=== PATIENT | male | born 1930 | race Caucasian/White ===

== ENCOUNTER 2020-06-24 15:17 | Inpatient (IN) ==
[2020-06-24 15:51] LABS: Basophils % 0.6 % (0.0-0.8); Eosinophils # 0.2 10*3/uL (0.0-0.87); Eosinophils % 3.5 % (0.00-10.9); Hemoglobin 10.7 GM/DL (14.0-18.0); Immature Granulocytes % 0.7 %; Immature Granulocytes Absolute 0.05 #; Lymphocytes # 1.7 10*3/uL (1.4-4.0); Lymphocytes % 24.3 % (21.2-54.2); Mean Corpuscular HGB Conc 33.4 GM/DL (32-36); Mean Corpuscular Volume 99.7 FL (87-102); Monocytes % 9.1 % (1.7-12.7); Neutrophils % 61.8 % (38.7-73.9); Platelet Count 205 T/CUMM (130-400); Red Blood Count 3.21 MC/CUMM (3.8-5.5); Red Cell Distribution Width 15.5 % (9.3-17.3); White Blood Count 6.8 T/CUMM (4-12)
[2020-06-24 16:11] LABS: Bilirubin,Total 0.7 MG/DL (0.2-1.0); Calcium 8.5 MG/DL (8.5-10.1); Osmolality,Calculated 275.1 MOS/KG (273-304); Total Protein 7.6 G/DL (6.4-8.3)
[2020-06-24 16:46] LABS: INR 1.4; PT Patient Result 14.9 SECS (9.8-11.9); Partial Thromboplastin Time 39.6 SECS (23.9-33.8)
[2020-06-24] MEDS ORDERED: cloNIDine 0.1 MG TABLET ONE (17:06)
[2020-06-24] MEDS ORDERED: cloNIDine 0.1 MG TABLET PO STA (17:07)
[2020-06-24] MEDS ORDERED: DEXTROSE 50% 25 GM/50 ML VIAL IV PRN (17:42)
[2020-06-24] MEDS ORDERED: ONDANSETRON 4 MG/2 ML VIAL IV PRN (17:42)
[2020-06-24] MEDS ORDERED: GLUCAGON 1 MG VIAL IM PRN (17:42)
[2020-06-24 17:59] LABS: Amorphous Crystals,Urine Occasional /HPF (Few); Bacteria,Urine Occasional /HPF (Few); Bilirubin,Urine Negative (Negative); Blood, Urine Small mg/dL (Negative); Glucose,Urine (UA) Negative (Negative); Hyaline Casts,Urine 58 /LPF (0-3); Ketones,Urine Negative (Negative); Mucus,Urine Occasional /LPF (Occasional); Nitrite,Urine Negative (Negative); Protein,Urine Negative; RBC,Urine 1 /HPF (0-4); Squamous Epithelial Cell,Urine Occasional /HPF (0-10); Urine Appearance Slightly Hazy (Clear); Urine Color Yellow (Yellow); Urine Specific Gravity 1.014 (1.001-1.035); Urine Urobilinogen < 2.0 EU/DL (0.2-1.0); WBC,Urine 5 /HPF (0-6)
[2020-06-24] MEDS: SODIUM CHLORIDE 0.9% 1,000 ML IV SCH (20:29)
[2020-06-24] MEDS: cefTRIAXone 1,000 MG in SYRINGE 1 EACH IV SCH (20:30)
[2020-06-24] MEDS: hydrALAZINE 25 MG TABLET PO SCH (21:14)
[2020-06-24] MEDS ORDERED: INFLUENZA VIRUS VACCINE 0.5 ML SYRINGE IM ONE (22:56)
[2020-06-24] MEDS: niCARdipine INJ 25 MG in SODIUM CHLORIDE 0.9% 240 ML IV SCH (23:26)
[2020-06-24] MEDS: DOCUSATE SODIUM 100 MG CAPSULE PO SCH (23:30)
[2020-06-24] MEDS: POLYETHYLENE GLYCOL POWDER 17 GM PACK PO SCH (23:30)
[2020-06-24] MEDS: HEPARIN 5,000 UNIT/1 ML VIAL SUBCUT SCH (23:30)
[2020-06-24] MEDS: SENNA 8.6 MG TABLET PO SCH (23:31)
[2020-06-25 04:03] LABS: Basophils % 0.6 % (0.0-0.8); Eosinophils # 0.3 10*3/uL (0.0-0.87); Eosinophils % 4.3 % (0.00-10.9); Hematocrit 27.6 VOL% (42.0-52.0); Hemoglobin 9.3 GM/DL (14.0-18.0); Immature Granulocytes % 0.4 %; Immature Granulocytes Absolute 0.03 #; Lymphocytes # 2.2 10*3/uL (1.4-4.0); Lymphocytes % 30.7 % (21.2-54.2); Mean Corpuscular HGB Conc 33.7 GM/DL (32-36); Mean Corpuscular Volume 96.2 FL (87-102); Mean Platelet Volume 9.6 FL (9.6-12.0); Monocytes % 10.1 % (1.7-12.7); Neutrophils % 53.9 % (38.7-73.9); Platelet Count 167 T/CUMM (130-400); Red Blood Count 2.87 MC/CUMM (3.8-5.5); Red Cell Distribution Width 15.5 % (9.3-17.3)
[2020-06-25] MEDS: niCARdipine INJ 25 MG in SODIUM CHLORIDE 0.9% 240 ML IV SCH ×2 (04:06→22:54)
[2020-06-25 04:47] LABS: Albumin 2.5 G/DL (3.4-5.0); Calcium 8.2 MG/DL (8.5-10.1); Osmolality,Calculated 275.9 MOS/KG (273-304); Risk Ratio 2.62; Thyroid Stimulating Hormone 2.66 uIU/ml (0.358-3.74); Total Protein 6.2 G/DL (6.4-8.3); VLDL CHOLESTEROL 13.8 MG/DL
[2020-06-25] MEDS: HEPARIN 5,000 UNIT/1 ML VIAL SUBCUT SCH (07:33)
[2020-06-25] MEDS ORDERED: PANTOPRAZOLE 40 MG TABLET PO SCH (09:00)
[2020-06-25] MEDS: DOCUSATE SODIUM 100 MG CAPSULE PO SCH ×2 (09:08→22:33)
[2020-06-25] MEDS: POLYETHYLENE GLYCOL POWDER 17 GM PACK PO SCH ×2 (09:08→22:57)
[2020-06-25] MEDS: TAMSULOSIN 0.4 MG CAPSULE PO SCH (09:08)
[2020-06-25] MEDS: hydrALAZINE 25 MG TABLET PO SCH ×3 (09:08→22:33)
[2020-06-25] MEDS ORDERED: HEPARIN 5,000 UNIT/1 ML VIAL IV ONE ×2 (15:04→23:00)
[2020-06-25] MEDS ORDERED: ALBUMIN 25% 50 GM in PREMIX 1 EACH IV ONE ×2 (15:30→23:00)
[2020-06-25 15:46] LABS: INR 1.5; PT Patient Result 15.4 SECS (9.8-11.9); Partial Thromboplastin Time 39.3 SECS (23.9-33.8)
[2020-06-25] MEDS ORDERED: ACETAMINOPHEN 500 MG TABLET PO ONE (16:28)
[2020-06-25] MEDS ORDERED: ACETAMINOPHEN 325 MG TABLET PO PRN (17:27)
[2020-06-25] MEDS ORDERED: traMADol 50 MG TABLET PO PRN (19:00)
[2020-06-25] MEDS ORDERED: HYDROmorphone 2 MG/1 ML VIAL IV PRN ×2 (19:01→19:38)
[2020-06-25] MEDS: HYDROmorphone 2 MG/1 ML VIAL IV PRN (19:54)
[2020-06-25] MEDS: cefTRIAXone 1,000 MG in SYRINGE 1 EACH IV SCH (22:28)
[2020-06-25] MEDS: SODIUM CHLORIDE 0.9% 1,000 ML IV SCH ×2 (22:32)
[2020-06-25] MEDS: SENNA 8.6 MG TABLET PO SCH (22:32)
[2020-06-25] MEDS: GABAPENTIN 300 MG CAPSULE PO SCH (22:33)
[2020-06-25] MEDS: HEPARIN DRIP 25,000 UNITS/500 ML PREMIX IV SCH (23:11)
[2020-06-26] MEDS ORDERED: ATROPINE 1 MG/10 ML SYRINGE IV STA (01:47)
[2020-06-26] MEDS ORDERED: ATROPINE 1 MG/10 ML SYRINGE IV ONE (02:05)
[2020-06-26] MEDS ORDERED: MORPHINE 4 MG/1 ML VIAL ONE (02:09)
[2020-06-26] MEDS ORDERED: DOPamine 800 MG/250 ML PREMIX IV ONE (02:13)
[2020-06-26] MEDS ORDERED: MORPHINE 4 MG/1 ML VIAL IV ONE (02:18)
[2020-06-26] MEDS: DOPamine 800 MG/250 ML PREMIX IV PRN ×5 (02:27→21:44)
[2020-06-26 02:39] LABS: Basophils % 0.3 % (0.0-0.8); Eosinophils % 0.2 % (0.00-10.9); Hematocrit 26.4 VOL% (42.0-52.0); Hemoglobin 8.9 GM/DL (14.0-18.0); Immature Granulocytes % 1.1 %; Lymphocytes # 2.3 10*3/uL (1.4-4.0); Lymphocytes % 24.1 % (21.2-54.2); Mean Corpuscular HGB Conc 33.7 GM/DL (32-36); Mean Corpuscular Volume 99.6 FL (87-102); Mean Platelet Volume 9.7 FL (9.6-12.0); Monocytes % 7.7 % (1.7-12.7); NRBC # 0.03 10*3/uL; Neutrophils % 66.6 % (38.7-73.9); Platelet Count 177 T/CUMM (130-400); Red Blood Count 2.65 MC/CUMM (3.8-5.5); Red Cell Distribution Width 16.2 % (9.3-17.3); White Blood Count 9.5 T/CUMM (4-12)
[2020-06-26 02:44] LABS: ABG Base Excess -6.8 MMOL/L (-2.5-2.5); ABG HCO3 17.4 MMOL/L (20-26); ABG Oxygen Saturation 95.5 % (95-100); ABG PCO2 30.3 MM HG (35-48); ABG PH 7.378 (7.35-7.45); ABG PO2 85.8 MM HG (80-95); ABG TCO2 18.4 MMOL/L (23-27); Allen Test Positive; Pt O2 Delivery Device Venturi Mask
[2020-06-26] MEDS: SODIUM CHLORIDE 0.9% 1,000 ML IV SCH ×3 (02:51→10:57)
[2020-06-26] MEDS: HEPARIN 5,000 UNIT/1 ML VIAL SUBCUT SCH (02:52)
[2020-06-26 03:22] LABS: Albumin 2.6 G/DL (3.4-5.0); Bilirubin,Total 0.5 MG/DL (0.2-1.0); Calcium 7.9 MG/DL (8.5-10.1); Osmolality,Calculated 276.2 MOS/KG (273-304); Total Protein 6.6 G/DL (6.4-8.3)
[2020-06-26] MEDS ORDERED: INSULIN REGULAR 100 UNIT/ML IV ONE (03:27)
[2020-06-26] MEDS ORDERED: DEXTROSE 50% 25 GM/50 ML VIAL IV ONE (03:27)
[2020-06-26] MEDS ORDERED: SODIUM BICARBONATE 50 MEQ/50 ML VIAL IV ONE (03:28)
[2020-06-26] MEDS ORDERED: CALCIUM CHLORIDE 1,000 MG/10 ML SYRINGE IV ONE ×2 (03:28→03:35)
[2020-06-26] MEDS ORDERED: INSULIN REGULAR 100 UNIT/ML ONE (03:35)
[2020-06-26] MEDS: HYDROmorphone 2 MG/1 ML VIAL IV PRN (06:00)
[2020-06-26 07:33] LABS: Calcium 8.7 MG/DL (8.5-10.1); Osmolality,Calculated 278.1 MOS/KG (273-304)
[2020-06-26] MEDS ORDERED: FUROSEMIDE 40 MG/4 ML VIAL IV ONE (08:43)
[2020-06-26] MEDS: POLYETHYLENE GLYCOL POWDER 17 GM PACK PO SCH ×2 (08:44→20:09)
[2020-06-26] MEDS: hydrALAZINE 25 MG TABLET PO SCH (08:55)
[2020-06-26] MEDS: DOCUSATE SODIUM 100 MG CAPSULE PO SCH ×2 (08:56→20:09)
[2020-06-26] MEDS: TAMSULOSIN 0.4 MG CAPSULE PO SCH (08:56)
[2020-06-26] MEDS ORDERED: HEPARIN/NACL 0.9% 2 UNITS/ML 500 ML IV ONE (10:06)
[2020-06-26] MEDS ORDERED: LIDOCAINE 1% 20 ML VIAL ONE (10:06)
[2020-06-26] MEDS ORDERED: MIDAZOLAM 2 MG/2 ML VIAL ONE (10:35)
[2020-06-26 10:41] LABS: INR 1.5; PT Patient Result 15.6 SECS (9.8-11.9)
[2020-06-26 13:15] LABS: Bacteria,Urine Many /HPF (Few); Bilirubin,Urine Negative (Negative); Blood, Urine Large mg/dL (Negative); Glucose,Urine (UA) Negative (Negative); Hyaline Casts,Urine 12 /LPF (0-3); Ketones,Urine Negative (Negative); Nitrite,Urine Negative (Negative); Protein,Urine 100 MG/DL; RBC,Urine 490 /HPF (0-4); Squamous Epithelial Cell,Urine Few /HPF (0-10); Urine Appearance CLOUDY (Clear); Urine Color Yellow (Yellow); Urine Specific Gravity 1.008 (1.001-1.035); Urine Urobilinogen < 2.0 EU/DL (0.2-1.0); WBC,Urine 60 /HPF (0-6)
[2020-06-26] MEDS: HYDROCORTISONE 100 MG VIAL IV SCH ×2 (16:38→22:25)
[2020-06-26] MEDS: PANTOPRAZOLE 40 MG VIAL IV SCH (16:38)
[2020-06-26] MEDS ORDERED: LEVOFLOXACIN INJ 750 MG in PREMIX 1 EACH IV ONE (17:00)
[2020-06-26 17:24] LABS: ABG Base Excess -6.4 MMOL/L (-2.5-2.5); ABG HCO3 18.5 MMOL/L (20-26); ABG Oxygen Saturation 46.3 % (95-100); ABG PCO2 47.9 MM HG (35-48); ABG PH 7.246 (7.35-7.45); ABG TCO2 19.8 MMOL/L (23-27)
[2020-06-26 17:26] LABS: ABG PO2 32.9 MM HG (80-95)
[2020-06-26] MEDS: HEPARIN DRIP 25,000 UNITS/500 ML PREMIX IV SCH (17:57)
[2020-06-26] MEDS: cefTRIAXone 1,000 MG in SYRINGE 1 EACH IV SCH (18:03)
[2020-06-26] MEDS: SIMVASTATIN 20 MG TABLET PO SCH (20:09)
[2020-06-26] MEDS: SENNA 8.6 MG TABLET PO SCH (20:09)
[2020-06-26] MEDS: GABAPENTIN 300 MG CAPSULE PO SCH (20:09)
[2020-06-26] MEDS: NOREPINEPHRINE 8 MG in SODIUM CHLORIDE 0.9% 242 ML IV PRN (22:12)
[2020-06-27] MEDS: HEPARIN DRIP 25,000 UNITS/500 ML PREMIX IV SCH ×2 (02:13→16:13)
[2020-06-27] MEDS: HYDROCORTISONE 100 MG VIAL IV SCH ×3 (05:09→17:25)
[2020-06-27 06:06] LABS: Basophils % 0.1 % (0.0-0.8); Hematocrit 25.7 VOL% (42.0-52.0); Hemoglobin 8.4 GM/DL (14.0-18.0); Immature Granulocytes % 0.8 %; Immature Granulocytes Absolute 0.14 #; Lymphocytes # 1.9 10*3/uL (1.4-4.0); Lymphocytes % 11.2 % (21.2-54.2); Mean Corpuscular HGB Conc 32.7 GM/DL (32-36); Mean Corpuscular Volume 102.4 FL (87-102); Mean Platelet Volume 9.6 FL (9.6-12.0); Monocytes % 5.6 % (1.7-12.7); NRBC # 0.03 10*3/uL; Neutrophils % 82.3 % (38.7-73.9); Platelet Count 212 T/CUMM (130-400); Red Blood Count 2.51 MC/CUMM (3.8-5.5); Red Cell Distribution Width 16.4 % (9.3-17.3); White Blood Count 17.2 T/CUMM (4-12)
[2020-06-27] MEDS: NOREPINEPHRINE 8 MG in SODIUM CHLORIDE 0.9% 242 ML IV PRN (06:48)
[2020-06-27 07:16] LABS: Albumin 2.5 G/DL (3.4-5.0); Bilirubin,Total 0.7 MG/DL (0.2-1.0); Calcium 8.2 MG/DL (8.5-10.1); Osmolality,Calculated 271.6 MOS/KG (273-304); Total Protein 6.5 G/DL (6.4-8.3)
[2020-06-27] MEDS ORDERED: SODIUM POLYSTYRENE SULFATE 15 GM/60 ML BOTTLE PO ONE (07:58)
[2020-06-27] MEDS: DOCUSATE SODIUM 100 MG CAPSULE PO SCH ×2 (08:59→20:29)
[2020-06-27] MEDS: TAMSULOSIN 0.4 MG CAPSULE PO SCH (08:59)
[2020-06-27] MEDS: POLYETHYLENE GLYCOL POWDER 17 GM PACK PO SCH ×2 (09:00→20:29)
[2020-06-27] MEDS: PANTOPRAZOLE 40 MG VIAL IV SCH (09:03)
[2020-06-27] MEDS: SODIUM BICARBONATE 650 MG TABLET PO SCH ×2 (09:11→20:29)
[2020-06-27 12:41] LABS: Calcium 7.9 MG/DL (8.5-10.1); Osmolality,Calculated 275.6 MOS/KG (273-304)
[2020-06-27] MEDS: NOREPINEPHRINE 16 MG in SODIUM CHLORIDE 0.9% 234 ML IV PRN (13:00)
[2020-06-27] MEDS ORDERED: MIDAZOLAM 100 MG in SODIUM CHLORIDE 0.9% 80 ML IV PRN ×2 (15:08→15:09)
[2020-06-27] MEDS: SODIUM POLYSTYRENE SULFATE 15 GM/60 ML BOTTLE PO PRN ×2 (17:25→22:31)
[2020-06-27] MEDS: cefTRIAXone 1,000 MG in SYRINGE 1 EACH IV SCH (17:26)
[2020-06-27] MEDS: SIMVASTATIN 20 MG TABLET PO SCH (20:29)
[2020-06-27] MEDS: SENNA 8.6 MG TABLET PO SCH (20:29)
[2020-06-27] MEDS: GABAPENTIN 300 MG CAPSULE PO SCH (20:29)
[2020-06-28] MEDS: HYDROCORTISONE 100 MG VIAL IV SCH ×3 (01:49→17:48)
[2020-06-28 04:13] LABS: Basophils % 0.1 % (0.0-0.8); Hematocrit 25.1 VOL% (42.0-52.0); Hemoglobin 8.3 GM/DL (14.0-18.0); Immature Granulocytes % 0.9 %; Immature Granulocytes Absolute 0.11 #; Lymphocytes # 1.4 10*3/uL (1.4-4.0); Lymphocytes % 11.4 % (21.2-54.2); Mean Corpuscular HGB Conc 33.1 GM/DL (32-36); Mean Corpuscular Volume 100.4 FL (87-102); Mean Platelet Volume 9.4 FL (9.6-12.0); Monocytes % 7.5 % (1.7-12.7); NRBC # 0.03 10*3/uL; Neutrophils % 80.1 % (38.7-73.9); Platelet Count 191 T/CUMM (130-400); Red Cell Distribution Width 16.3 % (9.3-17.3); White Blood Count 12.6 T/CUMM (4-12)
[2020-06-28] MEDS: NOREPINEPHRINE 16 MG in SODIUM CHLORIDE 0.9% 234 ML IV PRN (04:32)
[2020-06-28 04:38] LABS: Albumin 2.5 G/DL (3.4-5.0); Calcium 7.9 MG/DL (8.5-10.1); Osmolality,Calculated 286.9 MOS/KG (273-304); Total Protein 6.4 G/DL (6.4-8.3)
[2020-06-28] MEDS ORDERED: diphenhydrAMINE CAP 25 MG CAPSULE PO ONE (07:26)
[2020-06-28] MEDS ORDERED: DIAZEPAM 5 MG TABLET PO ONE (07:26)
[2020-06-28] MEDS ORDERED: SODIUM CHLORIDE 0.9% 1,000 ML IV SCH (07:30)
[2020-06-28] MEDS ORDERED: VANCOMYCIN 500 MG VIAL IRRIG ONE (07:48)
[2020-06-28] MEDS ORDERED: VANCOMYCIN INJ 1,000 MG in SODIUM CHLORIDE 0.9% 250 ML IV ONE (07:48)
[2020-06-28] MEDS ORDERED: HEPARIN 5,000 UNIT/1 ML VIAL ONE (07:55)
[2020-06-28] MEDS ORDERED: LIDOCAINE 1%/EPI INJ 20 ML VIAL ONE (07:55)
[2020-06-28] MEDS ORDERED: BUPIVACAINE MPF 0.25% 30 ML VIAL ONE (07:55)
[2020-06-28] MEDS: PANTOPRAZOLE 40 MG VIAL IV SCH (08:27)
[2020-06-28] MEDS ORDERED: DEXMEDETOMIDINE 200 MCG/2 ML VIAL ONE ×2 (08:50→12:51)
[2020-06-28] MEDS ORDERED: ceFAZolin 1,000 MG VIAL ONE (09:07)
[2020-06-28] MEDS ORDERED: MIDAZOLAM 2 MG/2 ML VIAL ONE ×2 (09:53→14:51)
[2020-06-28] MEDS: DOCUSATE SODIUM 100 MG CAPSULE PO SCH ×2 (10:36→20:56)
[2020-06-28] MEDS: POLYETHYLENE GLYCOL POWDER 17 GM PACK PO SCH ×2 (10:37→20:56)
[2020-06-28] MEDS: TAMSULOSIN 0.4 MG CAPSULE PO SCH (10:37)
[2020-06-28] MEDS: SODIUM BICARBONATE 650 MG TABLET PO SCH ×2 (10:37→20:56)
[2020-06-28] MEDS ORDERED: LIDOCAINE 1% 20 ML VIAL ONE (12:19)
[2020-06-28] MEDS ORDERED: HEPARIN/NACL 0.9% 2 UNITS/ML 500 ML IV ONE (12:45)
[2020-06-28] MEDS ORDERED: VANCOMYCIN 500 MG VIAL ONE ×2 (12:48→13:09)
[2020-06-28] MEDS: SODIUM CHLORIDE 0.9% 1,000 ML IV SCH (17:40)
[2020-06-28] MEDS: LEVOFLOXACIN INJ 500 MG in PREMIX 1 EACH IV SCH (17:47)
[2020-06-28] MEDS: cefTRIAXone 1,000 MG in SYRINGE 1 EACH IV SCH (17:48)
[2020-06-28] MEDS: HEPARIN DRIP 25,000 UNITS/500 ML PREMIX IV SCH (19:28)
[2020-06-28 20:56] LABS: Hepatitis B Core IgM Quant 0.06 Index; Hepatitis B Surface Ag Quant < 0.10 Index; Hepatitis B Surface Ag Result Negative (Negative); Hepatitis C Virus Ab Result Negative (Negative)
[2020-06-28] MEDS: SIMVASTATIN 20 MG TABLET PO SCH (20:56)
[2020-06-28] MEDS: SENNA 8.6 MG TABLET PO SCH (20:56)
[2020-06-28] MEDS: GABAPENTIN 300 MG CAPSULE PO SCH (20:56)
[2020-06-29] MEDS: HYDROCORTISONE 100 MG VIAL IV SCH ×3 (03:51→17:12)
[2020-06-29 04:30] LABS: Hematocrit 24.1 VOL% (42.0-52.0); Hemoglobin 8.1 GM/DL (14.0-18.0); Immature Granulocytes % 0.5 %; Immature Granulocytes Absolute 0.03 #; Lymphocytes % 17.5 % (21.2-54.2); Mean Corpuscular HGB Conc 33.6 GM/DL (32-36); Mean Corpuscular Volume 99.2 FL (87-102); Mean Platelet Volume 9.5 FL (9.6-12.0); Monocytes % 7.2 % (1.7-12.7); Neutrophils % 74.8 % (38.7-73.9); Platelet Count 116 T/CUMM (130-400); Red Blood Count 2.43 MC/CUMM (3.8-5.5); Red Cell Distribution Width 16.3 % (9.3-17.3); White Blood Count 5.9 T/CUMM (4-12)
[2020-06-29 05:02] LABS: Albumin 2.4 G/DL (3.4-5.0); Bilirubin,Total 0.4 MG/DL (0.2-1.0); Calcium 7.6 MG/DL (8.5-10.1); Total Protein 5.9 G/DL (6.4-8.3)
[2020-06-29] MEDS: POLYETHYLENE GLYCOL POWDER 17 GM PACK PO SCH ×2 (08:27→20:31)
[2020-06-29] MEDS: TAMSULOSIN 0.4 MG CAPSULE PO SCH (08:28)
[2020-06-29] MEDS: SODIUM BICARBONATE 650 MG TABLET PO SCH ×2 (08:28→20:28)
[2020-06-29] MEDS: DOCUSATE SODIUM 100 MG CAPSULE PO SCH ×2 (08:28→20:31)
[2020-06-29] MEDS: PANTOPRAZOLE 40 MG VIAL IV SCH (08:28)
[2020-06-29] MEDS ORDERED: WARFARIN 10 MG TABLET PO ONE (11:19)
[2020-06-29 12:56] LABS: INR 1.6
[2020-06-29] MEDS: SODIUM CHLORIDE 0.9% 1,000 ML IV SCH (15:30)
[2020-06-29] MEDS: hydrALAZINE 20 MG/1 ML VIAL IV PRN ×2 (16:10→22:50)
[2020-06-29] MEDS: cefTRIAXone 1,000 MG in SYRINGE 1 EACH IV SCH (17:12)
[2020-06-29] MEDS: HEPARIN DRIP 25,000 UNITS/500 ML PREMIX IV SCH (19:14)
[2020-06-29] MEDS: GABAPENTIN 300 MG CAPSULE PO SCH (20:28)
[2020-06-29] MEDS: hydrALAZINE 25 MG TABLET PO SCH (20:29)
[2020-06-29] MEDS: SIMVASTATIN 20 MG TABLET PO SCH (20:29)
[2020-06-29] MEDS: SENNA 8.6 MG TABLET PO SCH (20:31)
[2020-06-30] MEDS: HYDROCORTISONE 100 MG VIAL IV SCH ×3 (02:26→16:28)
[2020-06-30] MEDS: niCARdipine INJ 25 MG in SODIUM CHLORIDE 0.9% 240 ML IV SCH ×2 (02:46→12:49)
[2020-06-30 05:04] LABS: Hematocrit 24.4 VOL% (42.0-52.0); Hemoglobin 8.2 GM/DL (14.0-18.0); Immature Granulocytes % 0.7 %; Immature Granulocytes Absolute 0.04 #; Mean Corpuscular HGB Conc 33.6 GM/DL (32-36); Mean Corpuscular Volume 97.2 FL (87-102); Mean Platelet Volume 9.4 FL (9.6-12.0); Monocytes % 9.3 % (1.7-12.7); NRBC # 0.02 10*3/uL; Platelet Count 107 T/CUMM (130-400); Red Blood Count 2.51 MC/CUMM (3.8-5.5); Red Cell Distribution Width 16.2 % (9.3-17.3); White Blood Count 5.8 T/CUMM (4-12)
[2020-06-30 05:13] LABS: INR 1.8; PT Patient Result 18.3 SECS (9.8-11.9)
[2020-06-30 05:31] LABS: Albumin 2.3 G/DL (3.4-5.0); Bilirubin,Total 1.1 MG/DL (0.2-1.0); Calcium 8.2 MG/DL (8.5-10.1); Total Protein 5.9 G/DL (6.4-8.3)
[2020-06-30] MEDS ORDERED: POTASSIUM CHLORIDE 20 MEQ TABLET PO ONE (07:51)
[2020-06-30] MEDS: hydrALAZINE 25 MG TABLET PO SCH ×3 (08:38→20:55)
[2020-06-30] MEDS: TAMSULOSIN 0.4 MG CAPSULE PO SCH (08:38)
[2020-06-30] MEDS: SODIUM BICARBONATE 650 MG TABLET PO SCH ×2 (08:39→20:55)
[2020-06-30] MEDS: PANTOPRAZOLE 40 MG VIAL IV SCH (08:39)
[2020-06-30] MEDS: HEPARIN DRIP 25,000 UNITS/500 ML PREMIX IV SCH ×2 (08:45→14:59)
[2020-06-30] MEDS: DOCUSATE SODIUM 100 MG CAPSULE PO SCH ×3 (10:14→21:05)
[2020-06-30] MEDS: POLYETHYLENE GLYCOL POWDER 17 GM PACK PO SCH ×3 (10:15→21:05)
[2020-06-30] MEDS: SODIUM CHLORIDE 0.9% 1,000 ML IV SCH (12:44)
[2020-06-30] MEDS: LEVOFLOXACIN INJ 500 MG in PREMIX 1 EACH IV SCH (16:34)
[2020-06-30] MEDS: WARFARIN 5 MG TABLET PO SCH (17:44)
[2020-06-30] MEDS: cefTRIAXone 1,000 MG in SYRINGE 1 EACH IV SCH (17:48)
[2020-06-30] MEDS: SIMVASTATIN 20 MG TABLET PO SCH (20:55)
[2020-06-30] MEDS: SENNA 8.6 MG TABLET PO SCH (20:55)
[2020-06-30] MEDS: GABAPENTIN 300 MG CAPSULE PO SCH (20:55)
[2020-07-01] MEDS: HYDROCORTISONE 100 MG VIAL IV SCH ×3 (00:49→17:23)
[2020-07-01 04:49] LABS: Hematocrit 22.8 VOL% (42.0-52.0); Hemoglobin 7.6 GM/DL (14.0-18.0); Immature Granulocytes % 1.2 %; Immature Granulocytes Absolute 0.08 #; Lymphocytes % 15.3 % (21.2-54.2); Mean Corpuscular HGB Conc 33.3 GM/DL (32-36); Mean Corpuscular Volume 99.6 FL (87-102); Mean Platelet Volume 9.6 FL (9.6-12.0); Monocytes % 6.7 % (1.7-12.7); NRBC # 0.03 10*3/uL; Neutrophils % 76.8 % (38.7-73.9); Platelet Count 100 T/CUMM (130-400); Red Blood Count 2.29 MC/CUMM (3.8-5.5); Red Cell Distribution Width 16.9 % (9.3-17.3); White Blood Count 6.5 T/CUMM (4-12)
[2020-07-01 04:59] LABS: INR 2.7; PT Patient Result 27.4 SECS (9.8-11.9)
[2020-07-01 05:12] LABS: Albumin 2.3 G/DL (3.4-5.0); Bilirubin,Total 0.9 MG/DL (0.2-1.0); Calcium 8.2 MG/DL (8.5-10.1); Osmolality,Calculated 278.1 MOS/KG (273-304); Total Protein 5.7 G/DL (6.4-8.3)
[2020-07-01] MEDS: TAMSULOSIN 0.4 MG CAPSULE PO SCH (09:54)
[2020-07-01] MEDS: SODIUM BICARBONATE 650 MG TABLET PO SCH ×2 (09:54→21:11)
[2020-07-01] MEDS: hydrALAZINE 25 MG TABLET PO SCH ×3 (09:54→21:12)
[2020-07-01] MEDS: POLYETHYLENE GLYCOL POWDER 17 GM PACK PO SCH ×2 (09:55→21:08)
[2020-07-01] MEDS: PANTOPRAZOLE 40 MG VIAL IV SCH (09:55)
[2020-07-01] MEDS: DOCUSATE SODIUM 100 MG CAPSULE PO SCH ×2 (09:55→21:11)
[2020-07-01] MEDS: cefTRIAXone 1,000 MG in SYRINGE 1 EACH IV SCH (17:23)
[2020-07-01] MEDS: WARFARIN 5 MG TABLET PO SCH (17:24)
[2020-07-01] MEDS ORDERED: FUROSEMIDE 20 MG/2 ML VIAL IV ONE (17:40)
[2020-07-01] MEDS ORDERED: FUROSEMIDE 40 MG/4 ML VIAL ONE (17:44)
[2020-07-01] MEDS: SENNA 8.6 MG TABLET PO SCH (21:11)
[2020-07-01] MEDS: GABAPENTIN 300 MG CAPSULE PO SCH (21:11)
[2020-07-01] MEDS: SIMVASTATIN 20 MG TABLET PO SCH (21:12)
[2020-07-02] MEDS: HYDROmorphone 2 MG/1 ML VIAL IV PRN ×3 (00:40→16:58)
[2020-07-02] MEDS: HYDROCORTISONE 100 MG VIAL IV SCH ×3 (02:07→16:41)
[2020-07-02 06:10] LABS: Basophils % 0.1 % (0.0-0.8); Hematocrit 21.8 VOL% (42.0-52.0); Hemoglobin 7.3 GM/DL (14.0-18.0); Immature Granulocytes % 1.8 %; Immature Granulocytes Absolute 0.12 #; Lymphocytes # 1.3 10*3/uL (1.4-4.0); Lymphocytes % 19.3 % (21.2-54.2); Mean Corpuscular HGB Conc 33.5 GM/DL (32-36); Mean Corpuscular Volume 99.5 FL (87-102); Mean Platelet Volume 10.1 FL (9.6-12.0); Monocytes % 7.2 % (1.7-12.7); NRBC # 0.04 10*3/uL; Neutrophils % 71.6 % (38.7-73.9); Platelet Count 100 T/CUMM (130-400); Red Blood Count 2.19 MC/CUMM (3.8-5.5); Red Cell Distribution Width 17.2 % (9.3-17.3); White Blood Count 6.8 T/CUMM (4-12)
[2020-07-02 06:31] LABS: PT Patient Result 49.2 SECS (9.8-11.9)
[2020-07-02 06:39] LABS: Albumin 2.2 G/DL (3.4-5.0); Bilirubin,Total 0.9 MG/DL (0.2-1.0); Calcium 8.1 MG/DL (8.5-10.1); Osmolality,Calculated 275.5 MOS/KG (273-304); Total Protein 5.4 G/DL (6.4-8.3)
[2020-07-02 07:14] LABS: Folate 8.4 NG/ML (5.4-24.0); Vitamin B12 1334 PG/ML (211-911)
[2020-07-02 07:25] LABS: Sedimentation Rate-Westergren 32 MM/HR (0-20)
[2020-07-02 09:12] LABS: Hemoglobin A1 (Alkaline) 97.6 % (96.5-98.5); Hemoglobin A2 (Alkaline) 2.4 % (1.5-3.5)
[2020-07-02] MEDS: DOCUSATE SODIUM 100 MG CAPSULE PO SCH ×2 (09:18→21:26)
[2020-07-02] MEDS: hydrALAZINE 25 MG TABLET PO SCH ×3 (09:18→21:26)
[2020-07-02] MEDS: SODIUM BICARBONATE 650 MG TABLET PO SCH ×2 (09:18→21:25)
[2020-07-02] MEDS: PANTOPRAZOLE 40 MG VIAL IV SCH (09:18)
[2020-07-02] MEDS: TAMSULOSIN 0.4 MG CAPSULE PO SCH (09:18)
[2020-07-02] MEDS: POLYETHYLENE GLYCOL POWDER 17 GM PACK PO SCH ×2 (09:18→21:26)
[2020-07-02] MEDS ORDERED: ASPIRIN CHEW 81 MG TABLET PO ONE (10:47)
[2020-07-02] MEDS: ASPIRIN EC 81 MG TABLET PO SCH (10:56)
[2020-07-02] MEDS ORDERED: HEPARIN 10,000 UNIT/10 ML VIAL ONE (13:45)
[2020-07-02] MEDS: GABAPENTIN 300 MG CAPSULE PO SCH ×2 (14:17→21:25)
[2020-07-02] MEDS: SENNA 8.6 MG TABLET PO SCH (21:25)
[2020-07-02] MEDS: SIMVASTATIN 20 MG TABLET PO SCH (21:26)
[2020-07-03] MEDS: HYDROCORTISONE 100 MG VIAL IV SCH ×3 (01:03→16:06)
[2020-07-03] MEDS: HYDROmorphone 2 MG/1 ML VIAL IV PRN ×2 (01:05→04:52)
[2020-07-03 06:50] LABS: PT Patient Result 54.1 SECS (9.8-11.9)
[2020-07-03 06:51] LABS: INR 5.5
[2020-07-03 08:27] LABS: Basophils % 0.1 % (0.0-0.8); Hematocrit 23.1 VOL% (42.0-52.0); Hemoglobin 7.7 GM/DL (14.0-18.0); Immature Granulocytes Absolute 0.16 #; Lymphocytes # 1.2 10*3/uL (1.4-4.0); Lymphocytes % 14.4 % (21.2-54.2); Mean Corpuscular HGB Conc 33.3 GM/DL (32-36); Mean Corpuscular Volume 101.3 FL (87-102); Monocytes % 6.2 % (1.7-12.7); NRBC # 0.06 10*3/uL; Neutrophils % 77.3 % (38.7-73.9); Platelet Count 101 T/CUMM (130-400); Red Blood Count 2.28 MC/CUMM (3.8-5.5); Red Cell Distribution Width 17.2 % (9.3-17.3); White Blood Count 8.2 T/CUMM (4-12)
[2020-07-03] MEDS: hydrALAZINE 25 MG TABLET PO SCH ×3 (08:31→22:15)
[2020-07-03] MEDS: SODIUM BICARBONATE 650 MG TABLET PO SCH ×2 (08:31→22:13)
[2020-07-03] MEDS: DOCUSATE SODIUM 100 MG CAPSULE PO SCH ×2 (08:31→22:12)
[2020-07-03] MEDS: ASPIRIN EC 81 MG TABLET PO SCH (08:31)
[2020-07-03] MEDS: TAMSULOSIN 0.4 MG CAPSULE PO SCH (08:31)
[2020-07-03] MEDS: GABAPENTIN 300 MG CAPSULE PO SCH ×3 (08:32→22:13)
[2020-07-03] MEDS: POLYETHYLENE GLYCOL POWDER 17 GM PACK PO SCH ×2 (08:32→22:14)
[2020-07-03] MEDS: PANTOPRAZOLE 40 MG VIAL IV SCH (08:33)
[2020-07-03 08:36] LABS: Calcium 8.3 MG/DL (8.5-10.1); Osmolality,Calculated 267.8 MOS/KG (273-304)
[2020-07-03 10:09] LABS: Macrocytosis 1+
[2020-07-03 10:10] LABS: Platelet Estimate Adequate; Polychromasia Slight; Schistocytes Few
[2020-07-03] MEDS: cefTRIAXone 1,000 MG in SYRINGE 1 EACH IV SCH (10:15)
[2020-07-03] MEDS: SENNA 8.6 MG TABLET PO SCH (22:10)
[2020-07-03] MEDS: SIMVASTATIN 20 MG TABLET PO SCH (22:12)
[2020-07-04] MEDS: HYDROCORTISONE 100 MG VIAL IV SCH ×3 (00:54→16:07)
[2020-07-04 06:14] LABS: Hematocrit 21.6 VOL% (42.0-52.0); Hemoglobin 7.2 GM/DL (14.0-18.0); Immature Granulocytes % 2.4 %; Immature Granulocytes Absolute 0.18 #; Lymphocytes % 13.2 % (21.2-54.2); Mean Corpuscular HGB Conc 33.3 GM/DL (32-36); Mean Corpuscular Volume 100.9 FL (87-102); Mean Platelet Volume 10.4 FL (9.6-12.0); NRBC # 0.04 10*3/uL; Neutrophils % 76.4 % (38.7-73.9); Platelet Count 104 T/CUMM (130-400); Red Blood Count 2.14 MC/CUMM (3.8-5.5); White Blood Count 7.5 T/CUMM (4-12)
[2020-07-04 06:27] LABS: Calcium 8.2 MG/DL (8.5-10.1); Osmolality,Calculated 277.5 MOS/KG (273-304)
[2020-07-04 06:44] LABS: INR 3.9
[2020-07-04 06:48] LABS: PT Patient Result 39.2 SECS (9.8-11.9)
[2020-07-04] MEDS ORDERED: SODIUM CHLORIDE 0.9% 1,000 ML IV PRN (07:47)
[2020-07-04] MEDS: PANTOPRAZOLE 40 MG VIAL IV SCH (09:15)
[2020-07-04] MEDS: POLYETHYLENE GLYCOL POWDER 17 GM PACK PO SCH ×2 (09:15→20:59)
[2020-07-04] MEDS: GABAPENTIN 300 MG CAPSULE PO SCH ×3 (09:17→21:01)
[2020-07-04] MEDS: cefTRIAXone 1,000 MG in SYRINGE 1 EACH IV SCH (09:17)
[2020-07-04] MEDS: SODIUM BICARBONATE 650 MG TABLET PO SCH ×2 (09:18→21:01)
[2020-07-04] MEDS: TAMSULOSIN 0.4 MG CAPSULE PO SCH (09:18)
[2020-07-04] MEDS: DOCUSATE SODIUM 100 MG CAPSULE PO SCH ×2 (09:18→21:02)
[2020-07-04] MEDS: ASPIRIN EC 81 MG TABLET PO SCH (09:19)
[2020-07-04] MEDS: hydrALAZINE 25 MG TABLET PO SCH ×3 (09:21→21:06)
[2020-07-04 13:17] LABS: ABG Base Excess -1.8 MMOL/L (-2.5-2.5); ABG HCO3 22.5 MMOL/L (20-26); ABG Oxygen Saturation 97.6 % (95-100); ABG PCO2 36.1 MM HG (35-48); ABG PH 7.412 (7.35-7.45); ABG PO2 105.5 MM HG (80-95); ABG TCO2 23.6 MMOL/L (23-27)
[2020-07-04] MEDS: SENNA 8.6 MG TABLET PO SCH (21:01)
[2020-07-04] MEDS: SIMVASTATIN 20 MG TABLET PO SCH (21:02)
[2020-07-05] MEDS: HYDROCORTISONE 100 MG VIAL IV SCH ×3 (00:38→17:46)
[2020-07-05 06:23] LABS: Basophils % 0.1 % (0.0-0.8); Hematocrit 24.5 VOL% (42.0-52.0); Hemoglobin 8.2 GM/DL (14.0-18.0); Immature Granulocytes % 2.7 %; Immature Granulocytes Absolute 0.19 #; Lymphocytes # 0.8 10*3/uL (1.4-4.0); Lymphocytes % 11.4 % (21.2-54.2); Mean Corpuscular HGB Conc 33.5 GM/DL (32-36); Mean Corpuscular Volume 101.2 FL (87-102); Mean Platelet Volume 10.2 FL (9.6-12.0); Monocytes % 7.3 % (1.7-12.7); Neutrophils % 78.5 % (38.7-73.9); Platelet Count 123 T/CUMM (130-400); Red Blood Count 2.42 MC/CUMM (3.8-5.5); Red Cell Distribution Width 17.3 % (9.3-17.3); White Blood Count 7.1 T/CUMM (4-12)
[2020-07-05 06:33] LABS: INR 2.7; PT Patient Result 27.7 SECS (9.8-11.9)
[2020-07-05 06:34] LABS: Calcium 8.3 MG/DL (8.5-10.1); Osmolality,Calculated 274.2 MOS/KG (273-304)
[2020-07-05] MEDS ORDERED: POTASSIUM CHLORIDE 20 MEQ TABLET PO ONE (08:29)
[2020-07-05] MEDS: GABAPENTIN 300 MG CAPSULE PO SCH ×3 (13:14→21:06)
[2020-07-05] MEDS: TAMSULOSIN 0.4 MG CAPSULE PO SCH (13:14)
[2020-07-05] MEDS: SODIUM BICARBONATE 650 MG TABLET PO SCH ×2 (13:14→21:05)
[2020-07-05] MEDS: hydrALAZINE 25 MG TABLET PO SCH ×3 (13:14→21:06)
[2020-07-05] MEDS: ASPIRIN EC 81 MG TABLET PO SCH (13:15)
[2020-07-05] MEDS: PANTOPRAZOLE 40 MG VIAL IV SCH (13:15)
[2020-07-05] MEDS: POLYETHYLENE GLYCOL POWDER 17 GM PACK PO SCH ×2 (13:15→21:07)
[2020-07-05] MEDS: DOCUSATE SODIUM 100 MG CAPSULE PO SCH ×2 (13:15→21:05)
[2020-07-05] MEDS: cefTRIAXone 1,000 MG in SYRINGE 1 EACH IV SCH (13:19)
[2020-07-05] MEDS: METOPROLOL TARTRATE 25 MG TABLET PO SCH ×2 (13:28→21:06)
[2020-07-05] MEDS: WARFARIN 5 MG TABLET PO SCH (17:46)
[2020-07-05] MEDS: SIMVASTATIN 20 MG TABLET PO SCH (21:05)
[2020-07-05] MEDS: SENNA 8.6 MG TABLET PO SCH (21:05)
[2020-07-06] MEDS: HYDROCORTISONE 100 MG VIAL IV SCH ×3 (02:03→18:04)
[2020-07-06 07:33] LABS: Basophils % 0.1 % (0.0-0.8); Hematocrit 24.3 VOL% (42.0-52.0); Hemoglobin 7.9 GM/DL (14.0-18.0); Immature Granulocytes % 2.3 %; Immature Granulocytes Absolute 0.21 #; Lymphocytes % 11.3 % (21.2-54.2); Mean Corpuscular HGB Conc 32.5 GM/DL (32-36); Mean Corpuscular Volume 102.1 FL (87-102); Mean Platelet Volume 10.1 FL (9.6-12.0); Monocytes % 9.3 % (1.7-12.7); Platelet Count 129 T/CUMM (130-400); Red Blood Count 2.38 MC/CUMM (3.8-5.5); Red Cell Distribution Width 17.9 % (9.3-17.3); White Blood Count 9.2 T/CUMM (4-12)
[2020-07-06 07:37] LABS: INR 2.3; PT Patient Result 23.4 SECS (9.8-11.9)
[2020-07-06 07:51] LABS: Calcium 7.9 MG/DL (8.5-10.1); Osmolality,Calculated 272.8 MOS/KG (273-304)
[2020-07-06] MEDS: ASPIRIN EC 81 MG TABLET PO SCH (08:52)
[2020-07-06] MEDS: SODIUM BICARBONATE 650 MG TABLET PO SCH ×2 (08:52→21:37)
[2020-07-06] MEDS: METOPROLOL TARTRATE 25 MG TABLET PO SCH ×2 (08:52→21:37)
[2020-07-06] MEDS: GABAPENTIN 300 MG CAPSULE PO SCH ×3 (08:52→21:38)
[2020-07-06] MEDS: hydrALAZINE 25 MG TABLET PO SCH (08:52)
[2020-07-06] MEDS: TAMSULOSIN 0.4 MG CAPSULE PO SCH (08:53)
[2020-07-06] MEDS: PANTOPRAZOLE 40 MG VIAL IV SCH (08:53)
[2020-07-06] MEDS: cefTRIAXone 1,000 MG in SYRINGE 1 EACH IV SCH (08:53)
[2020-07-06] MEDS ORDERED: POTASSIUM CHLORIDE 20 MEQ TABLET PO ONE (09:05)
[2020-07-06] MEDS: POLYETHYLENE GLYCOL POWDER 17 GM PACK PO SCH ×2 (09:30→21:39)
[2020-07-06] MEDS: DOCUSATE SODIUM 100 MG CAPSULE PO SCH ×2 (09:30→21:38)
[2020-07-06] MEDS: WARFARIN 5 MG TABLET PO SCH (18:03)
[2020-07-06] MEDS: ASCORBIC ACID 500 MG TABLET PO SCH (21:37)
[2020-07-06] MEDS: SIMVASTATIN 20 MG TABLET PO SCH (21:38)
[2020-07-06] MEDS: SENNA 8.6 MG TABLET PO SCH (21:38)
[2020-07-07] MEDS: HYDROCORTISONE 100 MG VIAL IV SCH ×3 (00:35→17:14)
[2020-07-07 05:40] LABS: Basophils % 0.2 % (0.0-0.8); Hematocrit 25.3 VOL% (42.0-52.0); Hemoglobin 8.5 GM/DL (14.0-18.0); Immature Granulocytes % 2.7 %; Immature Granulocytes Absolute 0.25 #; Lymphocytes # 1.1 10*3/uL (1.4-4.0); Lymphocytes % 11.6 % (21.2-54.2); Mean Corpuscular HGB Conc 33.6 GM/DL (32-36); Mean Corpuscular Volume 97.3 FL (87-102); Mean Platelet Volume 9.8 FL (9.6-12.0); Monocytes % 8.9 % (1.7-12.7); NRBC # 0.02 10*3/uL; Neutrophils % 76.6 % (38.7-73.9); Platelet Count 140 T/CUMM (130-400); Red Cell Distribution Width 16.9 % (9.3-17.3); White Blood Count 9.2 T/CUMM (4-12)
[2020-07-07 06:04] LABS: Calcium 7.6 MG/DL (8.5-10.1); Osmolality,Calculated 277.9 MOS/KG (273-304)
[2020-07-07 06:12] LABS: PT Patient Result 21.2 SECS (9.8-11.9)
[2020-07-07] MEDS ORDERED: HEPARIN 10,000 UNIT/10 ML VIAL ONE (09:49)
[2020-07-07] MEDS: TAMSULOSIN 0.4 MG CAPSULE PO SCH (13:11)
[2020-07-07] MEDS: ASPIRIN EC 81 MG TABLET PO SCH (13:11)
[2020-07-07] MEDS: GABAPENTIN 300 MG CAPSULE PO SCH ×3 (13:11→21:20)
[2020-07-07] MEDS: ASCORBIC ACID 500 MG TABLET PO SCH ×2 (13:11→21:20)
[2020-07-07] MEDS: METOPROLOL TARTRATE 25 MG TABLET PO SCH ×2 (13:11→21:20)
[2020-07-07] MEDS: cefTRIAXone 1,000 MG in SYRINGE 1 EACH IV SCH (13:12)
[2020-07-07] MEDS: SODIUM BICARBONATE 650 MG TABLET PO SCH ×2 (13:12→21:19)
[2020-07-07] MEDS: PANTOPRAZOLE 40 MG VIAL IV SCH (13:12)
[2020-07-07] MEDS: DOCUSATE SODIUM 100 MG CAPSULE PO SCH ×2 (13:29→21:31)
[2020-07-07] MEDS: POLYETHYLENE GLYCOL POWDER 17 GM PACK PO SCH ×2 (13:29→21:32)
[2020-07-07] MEDS: WARFARIN 5 MG TABLET PO SCH (17:14)
[2020-07-07] MEDS: SENNA 8.6 MG TABLET PO SCH (21:20)
[2020-07-07] MEDS: SIMVASTATIN 20 MG TABLET PO SCH (21:32)
[2020-07-08] MEDS: HYDROCORTISONE 100 MG VIAL IV SCH ×3 (02:00→17:54)
[2020-07-08 05:57] LABS: Basophils % 0.1 % (0.0-0.8); Eosinophils % 0.2 % (0.00-10.9); Hematocrit 25.4 VOL% (42.0-52.0); Hemoglobin 8.4 GM/DL (14.0-18.0); Immature Granulocytes % 4.3 %; Immature Granulocytes Absolute 0.41 #; Lymphocytes % 10.3 % (21.2-54.2); Mean Corpuscular HGB Conc 33.1 GM/DL (32-36); Monocytes % 9.3 % (1.7-12.7); NRBC # 0.02 10*3/uL; Neutrophils % 75.8 % (38.7-73.9); Platelet Count 127 T/CUMM (130-400); Red Blood Count 2.54 MC/CUMM (3.8-5.5); Red Cell Distribution Width 17.8 % (9.3-17.3); White Blood Count 9.4 T/CUMM (4-12)
[2020-07-08 06:02] LABS: INR 2.3
[2020-07-08 06:14] LABS: Calcium 7.6 MG/DL (8.5-10.1); Osmolality,Calculated 275.5 MOS/KG (273-304)
[2020-07-08] MEDS: TAMSULOSIN 0.4 MG CAPSULE PO SCH (10:09)
[2020-07-08] MEDS: ASCORBIC ACID 500 MG TABLET PO SCH ×2 (10:09→22:20)
[2020-07-08] MEDS: ASPIRIN EC 81 MG TABLET PO SCH (10:09)
[2020-07-08] MEDS: SODIUM BICARBONATE 650 MG TABLET PO SCH ×2 (10:09→22:19)
[2020-07-08] MEDS: METOPROLOL TARTRATE 25 MG TABLET PO SCH ×2 (10:09→22:20)
[2020-07-08] MEDS: GABAPENTIN 300 MG CAPSULE PO SCH ×3 (10:09→22:19)
[2020-07-08] MEDS: DOCUSATE SODIUM 100 MG CAPSULE PO SCH ×2 (10:09→22:19)
[2020-07-08] MEDS: POLYETHYLENE GLYCOL POWDER 17 GM PACK PO SCH ×2 (10:10→22:19)
[2020-07-08] MEDS: PANTOPRAZOLE 40 MG VIAL IV SCH (10:10)
[2020-07-08] MEDS: cefTRIAXone 1,000 MG in SYRINGE 1 EACH IV SCH (10:11)
[2020-07-08] MEDS: WARFARIN 5 MG TABLET PO SCH (17:52)
[2020-07-08] MEDS: SIMVASTATIN 20 MG TABLET PO SCH (22:20)
[2020-07-08] MEDS: SENNA 8.6 MG TABLET PO SCH (22:20)
[2020-07-09] MEDS: HYDROCORTISONE 100 MG VIAL IV SCH ×3 (00:54→17:13)
[2020-07-09 05:53] LABS: Basophils % 0.2 % (0.0-0.8); Hematocrit 25.5 VOL% (42.0-52.0); Hemoglobin 8.5 GM/DL (14.0-18.0); Immature Granulocytes % 4.3 %; Immature Granulocytes Absolute 0.48 #; Lymphocytes # 1.3 10*3/uL (1.4-4.0); Lymphocytes % 11.3 % (21.2-54.2); Mean Corpuscular HGB Conc 33.3 GM/DL (32-36); Mean Corpuscular Volume 99.6 FL (87-102); Mean Platelet Volume 9.8 FL (9.6-12.0); Monocytes % 6.3 % (1.7-12.7); NRBC # 0.02 10*3/uL; Neutrophils % 77.9 % (38.7-73.9); Platelet Count 134 T/CUMM (130-400); Red Blood Count 2.56 MC/CUMM (3.8-5.5); Red Cell Distribution Width 17.1 % (9.3-17.3); White Blood Count 11.1 T/CUMM (4-12)
[2020-07-09 05:59] LABS: Calcium 7.5 MG/DL (8.5-10.1); Osmolality,Calculated 275.1 MOS/KG (273-304)
[2020-07-09] MEDS: POLYETHYLENE GLYCOL POWDER 17 GM PACK PO SCH (09:13)
[2020-07-09] MEDS: TAMSULOSIN 0.4 MG CAPSULE PO SCH (09:14)
[2020-07-09] MEDS: DOCUSATE SODIUM 100 MG CAPSULE PO SCH (09:14)
[2020-07-09] MEDS: SODIUM BICARBONATE 650 MG TABLET PO SCH (09:14)
[2020-07-09] MEDS: ASPIRIN EC 81 MG TABLET PO SCH (09:14)
[2020-07-09] MEDS: METOPROLOL TARTRATE 25 MG TABLET PO SCH (09:14)
[2020-07-09] MEDS: GABAPENTIN 300 MG CAPSULE PO SCH ×2 (09:14→17:12)
[2020-07-09] MEDS: ASCORBIC ACID 500 MG TABLET PO SCH (09:14)
[2020-07-09] MEDS: PANTOPRAZOLE 40 MG VIAL IV SCH (09:17)
[2020-07-09] MEDS: cefTRIAXone 1,000 MG in SYRINGE 1 EACH IV SCH (09:17)
[2020-07-09] MEDS: WARFARIN 5 MG TABLET PO SCH (17:12)
[2020-07-09 17:56] VITALS: BP 131/64
== END 2020-07-09 20:20 | DRG 228 ==
LOC: N.ED 15:17 → N.EDINP 19:56 → SUATTDRO 19:56 → N.EDINP 22:19 → N.CC 23:02 → N.TELES 06-25 17:54 → N.CC 06-26 01:56 → N.TELEN 07-01 15:21
PROVIDERS: ADMIT Hospitalist; ATTEND Internal Medicine
PROC: CLMICRA (2020-06-28 13:45)